=== PATIENT | male | born 1950 | race Hispanic/Latino ===

== ENCOUNTER 2024-10-27 09:21 | Outpatient (CLI) | payer MEDICARE, BC | END 2024-10-27 09:22 | disposition home or self-care (01) | LOC: CSHSLEEP 09:21 | PROVIDERS: ATTEND Internal Medicine Cardiovascular Disease | DX: G47.33 Obstructive sleep apnea (adult) (pediatric) (principal); G47.00 Insomnia, unspecified; I10 Essential (primary) hypertension | CPT/HCPCS: 95800 ==